=== PATIENT | male | born 1990 | race Caucasian/White ===

== ENCOUNTER 2024-07-28 18:52 | Emergency (ER) | payer OTHER, SELFPAY ==
[2024-07-28 19:00] VITALS: BP 171/90; PULSE 71; RESP 16; TEMP 37; O2SAT 99; BMI 32.8
[2024-07-28 22:18] VITALS: BP 159/105; PULSE 61; RESP 24; O2SAT 99
[2024-07-29 01:10] VITALS: BP 137/53; PULSE 65; RESP 16; TEMP 36.9; O2SAT 96
== END 2024-07-29 01:38 | disposition left against medical advice (07) ==
PROVIDERS: Emergency Provider Emergency Medicine
DX: K62.5 Hemorrhage of anus and rectum (principal)
CPT/HCPCS: 99281